=== PATIENT | male | born 1985 | race Caucasian/White ===

== ENCOUNTER 2022-11-23 15:21 | Emergency (ER) | payer MEDICAID, SELFPAY ==
[2022-11-23 15:26] VITALS: BP 136/96; PULSE 94; RESP 16; TEMP 36.7; O2SAT 99; BMI 31.1
[2022-11-23 15:32] VITALS: BP 136/96; PULSE 87; RESP 16; TEMP 36.9; O2SAT 99; BMI 29.3
--- NOTE | 2022-11-23 15:41 | XR_ITS ---
[address] [address] Patient Name: TRISH ALTMAN MRN: [id number] date: 1985 Sex: M Assigned Patient Location: ER Current Patient Location: ER Accession/Order Number: [id number] Exam Date: 11/23/2022 15:45 Report Date: 11/23/2022 16:09 At the request of: REBECCA DUKE Procedure: XR hand RT min 3V EXAM: XR hand RT min 3V HISTORY: Pain COMPARISON: X-rays 07/01/2020. TECHNIQUE: 3 views FINDINGS: No osseous lesion, fracture, dislocation or subluxation. Joint spaces are normal. No visualized effusion. No visualized soft tissue edema. XR/XR hand RT min 3V IMPRESSION: Normal x-rays Electronically authenticated by: RICARDO WILCOX Date: 11/23/2022 16:09
--- NOTE | 2022-11-23 15:43 | ED_ITS ---
HPI - Skin/Abscess/Foreign Bdy General Chief complaint: Skin/Abscess/Foreign Body Stated complaint: WOUND/ LACERATION Time Seen by Provider: 11/23/22 15:32 Source: patient Mode of arrival: walk-in History of Present Illness HPI narrative: 36-year-old male presents for an injury to his right hand. This happened in the early afternoon. He was using a power school and the socket came off and he was hit in the palm of the right hand, ulnar side. His finger still hurts and neither does his wrist. He had a tetanus shot about five years ago. the pain is mild. he is left-handed. Related Data Home Medications Medication Instructions Recorded Confirmed No Known Home Medications 11/23/22 11/23/22 Allergies Allergy/AdvReac Type Severity Reaction Status Date / Time No Known Drug Allergies Allergy Verified 11/23/22 15:26 Review of Systems ROS Narrative A ten point review of systems is negative except as noted above. Exam Narrative Exam Narrative: Nurses note and vital signs reviewed and patient is not hypoxic. General: The patient appears well and in no apparent distress. Patient is resting comfortably on cart. Skin: Warm, dry, no pallor noted. There is no rash noted. Head: Normocephalic, atraumatic Eye: Normal conjunctiva, no drainage Ears, Nose, Mouth, and Throat: oral mucosa is moist. Nares patent. Cardiovascular: Regular Rate and Rhythm Respiratory: Patient is in no distress, no accessory muscle use, lungs are clear to auscultation, no wheezing, rales or rhonchi Back: non-tender, no CVA tenderness bilaterally to percussion. GI: soft and nontender Musculoskeletal: on the right hand on her side palmar surface is a semicircle laceration which is a flap type laceration. It is closed now. Fingers have full range of motion. Neurological: A&O, normal speech Psychiatric: Cooperative Constitutional Vital Signs, click to edit/add: Last Vital Signs Temp 98.4 F 11/23/22 15:32 Pulse 87 11/23/22 15:32 Resp 16 11/23/22 15:32 BP 136/96 H 11/23/22 15:32 Pulse Ox 99 11/23/22 15:32 O2 Del Method Room Air 11/23/22 15:35 Course Vital Signs Vital signs: Vital Signs Temperature 98.1 F 11/23/22 15:26 Pulse Rate 94 H 11/23/22 15:26 Respiratory Rate 16 11/23/22 15:26 Blood Pressure 136/96 H 11/23/22 15:26 Pulse Oximetry 99 11/23/22 15:26 Oxygen Delivery Method Room Air 11/23/22 15:26 Temperature 98.4 F 11/23/22 15:32 Pulse Rate 87 11/23/22 15:32 Respiratory Rate 16 11/23/22 15:32 Blood Pressure 136/96 H 11/23/22 15:32 Pulse Oximetry 99 11/23/22 15:32 Oxygen Delivery Method Room Air 11/23/22 15:35 MDM - Skin/Abscess/Foreign Bdy MDM Narrative Medical decision making narrative: x-ray per radiologist shows no acute findings. Tetanus is up-to-date. Steri- Strips applied. The wound has been cleansed and dressed here. Treatment diagnosis and follow-up were discussed with the patient. sutures are not indicated. Differential Diagnosis Differential diagnosis: Likely other (abrasion, laceration, avulsion) Imaging Data right hand x-ray: Radiologist's impression: no acute findings Discharge Plan Discharge Chief Complaint: Skin/Abscess/Foreign Body Clinical Impression: Laceration of right hand Patient Disposition: Home, Self-Care Time of Disposition Decision: 16:24 Condition: Good Mode of Transportation: Private Vehicle Prescriptions / Home Meds: No Action No Known Home Medications Instructions: Laceration (ED) Additional Instructions: Do not get Steri-Strips wet for seven days. Stand Alone Forms: Portal Instructions Referrals: Physician,Non-Staff, MD [Primary Care Provider] - 1 week
== END 2022-11-23 16:34 | disposition home or self-care (01) ==
PROVIDERS: Emergency Provider Emergency Medicine
DX: S61.411A Laceration without foreign body of right hand, initial encounter (principal); W22.8XXA Striking against or struck by other objects, initial encounter
CPT/HCPCS: 73130; 99283

== ENCOUNTER 2023-03-22 20:08 | Emergency (ER) | payer MEDICAID, SELFPAY ==
[2023-03-22 20:14] VITALS: BP 167/120; PULSE 74; RESP 20; TEMP 37; O2SAT 99; BMI 32.9
--- NOTE | 2023-03-22 20:27 | XR_ITS ---
[address] [address] Patient Name: TRISH ALTMAN MRN: [id number] date: 1985 Sex: M Assigned Patient Location: ER Current Patient Location: ER Accession/Order Number: [id number] Exam Date: 03/22/2023 20:40 Report Date: 03/22/2023 21:01 At the request of: AFIA TREADWELL Procedure: XR humerus LT EXAM: XR humerus LT HISTORY: left arm pain COMPARISON: None. TECHNIQUE: 2 views left humerus FINDINGS: No acute fracture or aggressive osseous abnormality. Mild degenerative change of the acromioclavicular joint. Soft tissues of the left upper extremity are unremarkable. Left lung is clear. XR/XR humerus LT IMPRESSION: No acute osseous abnormality of the left humerus. Electronically authenticated by: FRITZ MANUEL Date: 03/22/2023 21:01
--- NOTE | 2023-03-22 20:27 | XR_ITS ---
The [address] [address] Patient Name: TRISH ALTMAN MRN: [id number] date: 1985 Sex: M Assigned Patient Location: ER Current Patient Location: ER Accession/Order Number: [id number] Exam Date: 03/22/2023 20:40 Report Date: 03/22/2023 21:05 At the request of: AFIA TREADWELL Procedure: XR shoulder LT min 2V EXAM: XR shoulder LT min 2V HISTORY: Left shoulder pain COMPARISON: None. TECHNIQUE: 2 views left shoulder FINDINGS: Mild degenerative change of the acromioclavicular joint. Glenohumeral joint is congruent. No acute fracture or aggressive osseous abnormality. Imaged lungs are clear. XR/XR shoulder LT min 2V IMPRESSION: Mild degenerative change of the acromioclavicular joint without acute osseous abnormality. Electronically authenticated by: FRITZ MANUEL Date: 03/22/2023 21:05
--- NOTE | 2023-03-22 20:27 | ECG_ITS ---
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
--- NOTE | 2023-03-22 20:28 | ED_ITS ---
HPI - General Adult General Chief complaint: Extremity Problem, Nontraumatic Stated complaint: LT ARM PAIN Time Seen by Provider: 03/22/23 20:18 Source: patient Mode of arrival: walk-in Limitations: no limitations History of Present Illness HPI narrative: Patient is a 37-year-old male who presents to the emergency department for intermittent and progressively worsening pain in the left posterior arm. He states several months ago the pain began in the left anterior shoulder and now he feels the pain in the left deltoid with some radiation into the arm. He denies any specific mechanism of injury or trauma. 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 He states earlier today he felt mildly lightheaded and was concerned because he looked up left arm pain on the Internet. He has not had any swelling or redness of the shoulder, no chest pain or shortness of breath. He has a history of high blood pressure but has not been taking any medication for high blood pressure. He states if he lays on the left arm the pain improves. Massage also improves pain to the left posterior arm. Related Data Previous Rx's Medication Instructions Recorded ketorolac 10 mg tablet 10 mg PO TID PRN pain #10 tabs 03/22/23 methocarbamol 750 mg tablet 750 mg PO TID PRN pain #20 tabs 03/22/23 methylprednisolone 4 mg tablets in See Rx Instructions .Route 03/22/23 a dose pack (Medrol (Socrates)) .COMPLEX #21 ea Allergies Allergy/AdvReac Type Severity Reaction Status Date / Time No Known Drug Allergies Allergy Verified 03/22/23 20:18 Review of Systems ROS Constitutional Denies: fever or chills Ears, nose, mouth, and throat Denies: throat pain Cardiovascular Denies: chest pain Respiratory Denies: shortness of breath or cough Gastrointestinal Denies: nausea or vomiting Musculoskeletal Reports: extremity pain; Denies: back pain Integumentary/Breast Denies: rash Neurological Denies: headache PFSH PFSH Social History Smoking status: Current every day smoker Exam Narrative Exam Narrative: Gen.: Awake, alert, in no distress Head: Normocephalic, atraumatic ENT: Moist mucous membranes Respiratory: No respiratory distress, lungs clear bilaterally Cardio: Regular rate and rhythm Extremities: Moves extremities equally, patient splinting the left upper arm, no bony point tenderness of the left shoulder or left humerus. 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 Psych: Normal mood and affect Neuro: No focal neuro deficit Skin: Warm, dry, intact Constitutional Vital Signs, click to edit/add: Last Vital Signs Temp 98.6 F 03/22/23 20:14 Pulse 80 03/22/23 21:36 Resp 18 03/22/23 21:36 BP 167/120 H 03/22/23 20:14 Pulse Ox 97 03/22/23 21:36 O2 Del Method Room Air 03/22/23 21:36 Course Vital Signs Vital signs: Vital Signs Temperature 98.6 F 03/22/23 20:14 Pulse Rate 74 03/22/23 20:14 Respiratory Rate 20 03/22/23 20:14 Blood Pressure 167/120 H 03/22/23 20:14 Pulse Oximetry 99 03/22/23 20:14 Oxygen Delivery Method Room Air 03/22/23 20:14 Temperature 98.6 F 03/22/23 20:14 Pulse Rate 80 03/22/23 21:36 Respiratory Rate 18 03/22/23 21:36 Blood Pressure 167/120 H 03/22/23 20:14 Pulse Oximetry 97 03/22/23 21:36 Oxygen Delivery Method Room Air 03/22/23 21:36 Medical Decision Making MDM Narrative Medical decision making narrative: X-rays of the left shoulder and left humerus show degenerative changes at the left acromioclavicular joint which is consistent with the patient's presentation of left shoulder pain progressing into the left arm. Patient will be given anti-inflammatories, steroid pack and muscle relaxants. He is referred to orthopedics. An EKG was performed because the patient was concerned about his left arm pain ongoing for several months and what he read on the Internet. The EKG does not show any acute process, he has no chest pain or shortness of breath. He was is strongly encouraged to see a primary care provider about rechecking his blood pressure. Return to the ER if symptoms change or worsen. Medical Records Medical records reviewed: Yes I reviewed the patient's medical records ECG Data Attestation: I personally reviewed and interpreted this ECG as follows: (Normal sinus rhythm at a rate of 89, no acute ST elevation or ectopy. EKG reviewed by attending physician) Discharge Plan Discharge Chief Complaint: Extremity Problem, Nontraumatic Clinical Impression: Left arm pain Patient Disposition: Home, Self-Care Time of Disposition Decision: 21:10 Condition: Good Prescriptions / Home Meds: New ketorolac 10 mg tablet 10 mg PO TID PRN (Reason: pain) Qty: 10 0RF methocarbamol 750 mg tablet 750 mg PO TID PRN (Reason: pain) Qty: 20 0RF methylprednisolone [Medrol (Socrates)] 4 mg tablets,dose pack See Rx Instructions .ROUTE .COMPLEX Qty: 21 0RF Rx Instructions: Taper as directed Instructions: Arm Pain (ED) Stand Alone Forms: Portal Instructions Referrals: Crescencio Askew MD [Physician] - 1 week Discharge Date/Time: 03/22/23 21:35
--- NOTE | 2023-03-22 20:39 | PC.NURSE ---
Pt reports left arm pain that radiates down arm from shoulder to elbow, x3 months. Report nerve injury years ago, since had resolved. Pulses intact. Limited ROM.
[2023-03-22] MEDS: KETOROLAC TROMETHAMINE 60 MG/2 ML VIAL IM (20:54)
[2023-03-22 21:36] VITALS: PULSE 80; RESP 18; O2SAT 97
== END 2023-03-22 21:35 | disposition home or self-care (01) ==
PROVIDERS: Emergency Provider Emergency Medicine
DX: M79.602 Pain in left arm (principal); F17.210 Nicotine dependence, cigarettes, uncomplicated
CPT/HCPCS: 73030; 73060; 93005; 96372; 99284

== ENCOUNTER 2023-12-28 15:56 | Emergency (ER) | payer OTHER, SELFPAY ==
[2023-12-28] VITALS (12 sets, daily range): BP systolic 137–175; BP diastolic 90–124; PULSE 108–128; TEMP 37.3–38.1; O2SAT 95–96; BMI 23.5
--- NOTE | 2023-12-28 16:05 | XR_ITS ---
The [address] [address] Patient Name: TRISH ALTMAN MRN: [id number] date: 1985 Sex: M Assigned Patient Location: ED.MAIN Current Patient Location: ER Accession/Order Number: [id number] Exam Date: 12/28/2023 16:22 Report Date: 12/28/2023 16:50 At the request of: BRIAN HINOJOSA Procedure: XR cervical spine 2-3V IMAGES REVIEWED: XR cervical spine 2-3V, XR chest 2V, XR shoulder LT min 2V COMPARISON: 03/22/2023. CLINICAL INDICATION: pain FINDINGS/IMPRESSION: 1. No evidence of acute osseous abnormality of the cervical spine or left shoulder. 2. No radiographic evidence of acute cardiopulmonary abnormality. 3. There appears to be slight levocurvature of the cervical spine and minimal multilevel degenerative change of the cervical spine. 4. Minimal degenerative change left AC joint. Electronically authenticated by: NINO BRADLEY Date: 12/28/2023 16:50
--- NOTE | 2023-12-28 16:05 | XR_ITS ---
The [address] [address] Patient Name: TRISH ALTMAN MRN: [id number] date: 1985 Sex: M Assigned Patient Location: ER Current Patient Location: ER Accession/Order Number: [id number] Exam Date: 12/28/2023 16:22 Report Date: 12/28/2023 16:50 At the request of: BRIAN HINOJOSA Procedure: XR chest 2V IMAGES REVIEWED: XR cervical spine 2-3V, XR chest 2V, XR shoulder LT min 2V COMPARISON: 03/22/2023. CLINICAL INDICATION: pain FINDINGS/IMPRESSION: 1. No evidence of acute osseous abnormality of the cervical spine or left shoulder. 2. No radiographic evidence of acute cardiopulmonary abnormality. 3. There appears to be slight levocurvature of the cervical spine and minimal multilevel degenerative change of the cervical spine. 4. Minimal degenerative change left AC joint. Electronically authenticated by: NINO BRADLEY Date: 12/28/2023 16:50
--- NOTE | 2023-12-28 16:05 | XR_ITS ---
The [address] [address] Patient Name: TRISH ALTMAN MRN: [id number] date: 1985 Sex: M Assigned Patient Location: ER Current Patient Location: ER Accession/Order Number: [id number] Exam Date: 12/28/2023 16:22 Report Date: 12/28/2023 16:50 At the request of: BRIAN HINOJOSA Procedure: XR shoulder LT min 2V IMAGES REVIEWED: XR cervical spine 2-3V, XR chest 2V, XR shoulder LT min 2V COMPARISON: 03/22/2023. CLINICAL INDICATION: pain FINDINGS/IMPRESSION: 1. No evidence of acute osseous abnormality of the cervical spine or left shoulder. 2. No radiographic evidence of acute cardiopulmonary abnormality. 3. There appears to be slight levocurvature of the cervical spine and minimal multilevel degenerative change of the cervical spine. 4. Minimal degenerative change left AC joint. Electronically authenticated by: NINO BRADLEY Date: 12/28/2023 16:50
--- NOTE | 2023-12-28 16:10 | ED_ITS ---
<Statement entered by Hilary Rodriguez MD - 12/28/23 17:37> This documentation has been reviewed and approved. HPI HPI - General Adult General Chief complaint: Extremity Injury, Upper Stated complaint: Left Shoulder Pain Time Seen by Provider: 12/28/23 15:59 Source: patient Mode of arrival: walk-in Limitations: no limitations History of Present Illness HPI narrative: Patient is a 38-year-old male presents to the ER with concerns of left shoulder pain. He denies injury, states he is not currently working. Notes pain has been present for 1 to 2 weeks, gradually building and getting worse. Patient localizes symptoms to the left paravertebral cervical spine into the medial scapular border and left posterior shoulder. He denies any anterior shoulder pain. Patient notes he can get relief if he holds his arm above his head in a certain position. He denies any chest pain or shortness of breath. He denies abdominal pain. Patient states he has been working outside and presents borderline febrile with elevated heart rate. He admits to marijuana use but denies any illicit drug use or injected drug use. Patient drinks alcohol occasionally and has poor dentition. Denies any current signs or symptoms of infection. Patient without headache or loss of vision. He appears uncomfortable with movement of his neck and only certain positions and left shoulder. Location: Reports neck and upper extremity (left shoulder) Radiation: Reports neck Severity: moderate Quality: Reports aching and constant Pain Consistency: Reports constant Relieving factors: Reports movement (certain position/ ) Exacerbating factors: Reports none Related Data Previous Rx's ?Medication ?Instructions ?Recorded prednisone 20 mg tablet 40 mg (2 x 20 mg) PO DAILY 5 days 12/28/23 #10 tabs tizanidine 4 mg capsule (Zanaflex) 4 mg PO TID PRN muscle spasticity 12/28/23 #10 caps Allergies Allergy/AdvReac Type Severity Reaction Status Date / Time No Known Drug Allergies Allergy Verified 12/28/23 16:04 Opioid HPI Opioid Management Most Recent Opioid Data: Last Pain Scale 10 12/28/23 16:34 Last MAR Pain Assessment 12/28/23 16:34 Review of Systems ROS Constitutional Reports: fever; Denies: chills Eyes Denies: increased production of tears Ears, nose, mouth, and throat Denies: throat pain, throat swelling, difficulty swallowing or dry mouth Cardiovascular Denies: chest pain, palpitations or edema Respiratory Denies: shortness of breath or cough Gastrointestinal Denies: abdominal pain, nausea or vomiting Genitourinary Denies: painful urination Musculoskeletal Reports: neck pain, extremity pain (left shoulder) and joint pain (left posterior shoulder, no swelling. ); Denies: back pain or extremity swelling Integumentary/Breast Denies: rash or itching Neurological Denies: headache, numbness in extremities, weakness in extremities or behavioral changes Psychiatric Denies: anxiety Hematologic/Lymphatic Denies: easy bruising Allergic/Immunologic Denies: hives PFSH [facility] Social History Smoking status: Current every day smoker Little interest or pleasure in doing things: not at all Feeling down, depressed, or hopeless: not at all Exam Narrative Exam Narrative: Nurses notes and vital signs reviewed and patient is not hypoxic. General: The patient appears well, uncomfortable with movement. Patient is resting comfortably on cart. Skin: Warm, dry, no pallor noted. Head: Normocephalic, atraumatic Neck: Supple, trachea mid-line, tenderness noted left paravertebral cervical and left medial scapular border, palpable spasm. No meningeal signs. Pain present when looking to the left with resistance, no pain with looking right, up or down. Eye: Pupils are equal, round and reactive to light, EOMI Ears, Nose, Mouth, and Throat: TM are clear, normal light reflex, oral mucosa is moist, no posterior oropharynx erythema or hypertrophy, uvula is mid-line, poor dentition noted. Cardiovascular: tachycardia. Respiratory: Patient is in no distress, no accessory muscle use, lungs are clear to auscultation, no wheezing, rales or rhonchi. Chest Wall: no tenderness Back: non-tender, no CVA tenderness Musculoskeletal: No swelling or erythema to the left shoulder joint, tolerates passive range of motion well without complaints of pain, negative Sheridan test. Patient has pain with movement of the left trapezium with notable palpable spasm. Pain completely relieved with certain position of the shoulder but tolerates motion well otherwise, reproducible spasm left paravertebral cervical. Right upper extremity unremarkable, no focal deficits. GI: Normal bowel sounds, no tenderness to palpation, no masses appreciated. No rebound, guarding, or rigidity noted. Neurological: A&O x4. Reflexes 2+ symmetric biceps, triceps and brachial radialis, negative clonus. no menigeal signs Psychiatric: Cooperative Constitutional Vital Signs, click to edit/add: Last Vital Signs Temp 100.6 F H 12/28/23 16:01 Pulse 110 H 12/28/23 17:00 Resp 15 12/28/23 16:50 BP 137/90 12/28/23 17:00 Pulse Ox 95 12/28/23 16:27 O2 Del Method Room Air 12/28/23 16:27 Course Vital Signs Vital signs: Vital Signs Temperature 100.6 F H 12/28/23 16:01 Pulse Rate 128 H 12/28/23 16:01 Respiratory Rate 18 12/28/23 16:01 Blood Pressure 174/124 H 12/28/23 16:01 Pulse Oximetry 96 12/28/23 16:01 Oxygen Delivery Method Room Air 12/28/23 16:01 Temperature 100.6 F H 12/28/23 16:01 Pulse Rate 110 H 12/28/23 17:00 Respiratory Rate 15 12/28/23 16:50 Blood Pressure 137/90 12/28/23 17:00 Pulse Oximetry 95 12/28/23 16:27 Oxygen Delivery Method Room Air 12/28/23 16:27 Medical Decision Making MDM Narrative Medical decision making narrative: Patient presents with benign left posterior shoulder pain notes repetitive overhead lifting and pushing. However on exam has notable spasm to the left paracervical muscles into the left medial scapular space, dropped off by his family. Patient notes pain with motion and positioning. He is however tachycardic, low-grade fever. Blood cultures will be obtained and supportive labs. Patient admits to a longstanding history of hypertension. ] Patient reevaluated, reports feeling significantly better. Denies headache, notes neck pain is much more tolerable. Patient able to stand and ambulate about the room reporting that he feels significantly better. We discussed his laboratory studies. Sed rate and CRP are elevated white blood cell count and lactic within normal limits, sepsis appears less likely as the patient clinically appears nontoxic. Blood cultures will still be pending. He lives with his family who are now present at the bedside and they advised if they noticed any change in symptoms or behavior they will bring him immediately back to the ER for reevaluation as we discussed the risks and benefits of observation versus discharge home. Patient had elevated blood pressure and heart rate on arrival. Admits that he drank 2 monsters approximately 1 hour prior to arrival and he is encouraged to cut back his caffeine consumption. His blood pressure did improve nicely with control of his pain. He is without any chest pain or shortness of breath. We discussed the importance of prompt follow-up to the family doctor for ongoing management of chronic medical conditions. I feel the patient has cervical neck pain and some C5 cervical radiculopathy. Palpable muscle spasms. He may require physical therapy referral if symptoms persist. We discussed medication and he is agreeable to muscle relaxant at bedtime and prednisone taper in addition to Tylenol. Patient will return to the ER if symptoms worsen or new symptoms develop.Pt declines idea of admission ambulatory at bedside. The patient is to followup with primary care physician in next 2-3 days or to return to the emergency department should any of the signs or symptoms worsen or new symptoms develop. Patient had questions answered. The patient agrees with the following Diagnosis and Treatment plan and the patient will be discharged home. Lab Data Lab results reviewed: Yes I reviewed the patient's lab results Labs: Lab Results 12/28/23 12/28/23 Range/Units 16:08 16:15 WBC 9.6 (4.0-11.0) 10^3/uL RBC 5.01 (4.70-6.10) 10^6/uL Hgb 15.3 (14.0-18.0) g/dL Hct 44.4 (42.0-54.0) % MCV 88.6 (80.0-94.0) fL MCH 30.5 (25.9-34.0) pg MCHC 34.5 (29.9-35.2) g/dL RDW 13.1 (11.0-15.0) % Plt Count 276 (150-450) 10^3/uL MPV 10.8 (9.5-13.5) fL Neut % (Auto) 78.3 H (43.0-75.0) % Lymph % (Auto) 7.9 L (20.5-60.0) % [place] % (Auto) 10.2 (1.7-12.0) % Eos % (Auto) 2.8 (0.9-7.0) % Baso % (Auto) 0.6 (0.2-2.0) % Neut # (Auto) 7.5 H (1.4-6.5) 10^3/uL Lymph # (Auto) 0.8 L (1.2-3.8) 10^3/uL [place] # (Auto) 1.0 H (0.3-0.8) 10^3/uL Eos # (Auto) 0.3 (0.0-0.7) 10^3/uL Baso # (Auto) 0.1 (0.0-0.1) 10^3/uL Abs Immat Gran (auto) 0.02 (0.00-0.03) 10^3/uL Imm/Tot Granulo (auto) 0.2 (0.0-0.5) % ESR 44 H (<=15) mm/hr Sodium 135 L (136-145) mmol/L Potassium 3.8 (3.5-5.1) mmol/L Chloride 99 (98-107) mmol/L Carbon Dioxide 26.2 (21.0-32.0) mmol/L Anion Gap 13.6 BUN 13.0 (7.0-18.0) mg/dL Creatinine 1.23 (0.70-1.30) mg/dL Est GFR ( Amer) >60 (>=60) Est GFR (Non-Af Amer) >60 (>=60) BUN/Creatinine Ratio 10.6 Glucose 115 H (74-106) mg/dL Lactate 1.8 (0.4-2.0) mmol/L Calcium 9.1 (8.5-10.1) mg/dL Total Bilirubin 0.3 (0.2-1.0) mg/dL AST 39 H (15-37) U/L ALT 32 (16-63) U/L Alkaline Phosphatase 129 H (46-116) U/L Troponin I High Sens <4.0 L (4.0-76.1) pg/mL C-Reactive Protein 1.40 H (<=0.50) mg/dL Total Protein 8.2 (6.4-8.2) g/dL Albumin 4.2 (3.4-5.0) g/dL Globulin 4.0 g/dL Albumin/Globulin Ratio 1.0 Urine Color Yellow (YELLOW) Urine Clarity Clear (CLEAR) Urine pH 7.0 (5.0-9.0) Ur Specific [place] 1.020 (1.005-1.025) Urine Protein Negative (NEG/TRACE) mg/dL Urine Glucose (UA) Negative (NEGATIVE) mg/dL Urine Ketones Negative (NEGATIVE) mg/dL Urine Occult Blood Negative (NEGATIVE) Urine Nitrite Negative (NEGATIVE) Urine Bilirubin Negative (NEGATIVE) Urine Urobilinogen 0.2 (0.2-1.0) EU/dL Ur Leukocyte Esterase Negative (NEGATIVE) ECG Data Attestation: I personally reviewed and interpreted this ECG as follows: Interpretation: EKG interpretation: Emergency Department physician interpretation, sinus tachycardia 123 bpm. No ectopy, no ST segment elevation, normal axis. Discharge Plan Discharge Chief Complaint: Extremity Injury, Upper Clinical Impression: Cervical paraspinous muscle spasm, Acute pain of left shoulder, Cervical radiculopathy at C5 Patient Disposition: Home, Self-Care Time of Disposition Decision: 17:23 Condition: Good Prescriptions / Home Meds: New tizanidine [Zanaflex] 4 mg capsule 4 mg PO TID PRN (Reason: muscle spasticity) Qty: 10 0RF prednisone 20 mg tablet 40 mg PO DAILY 5 Days Qty: 10 0RF Print Language: Bahamian Instructions: Muscle Spasm (ED), Neck Pain (ED) Referrals: Britni Flowers NP [Physician] - As soon as possible Crescencio Askew MD [Physician] - As needed
--- NOTE | 2023-12-28 16:10 | ECG_ITS ---
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
--- OUTSIDE RECORDS SUMMARY | 2023-12-28 16:26 | XMS_ITS | CCD ---
Author Organization [facility] Informat ion Partnership [facility] Care Team Providers Care Physicist Astrophysics Name Role Phone REQUEST, DR NONE LISTED Primary Care Unavaila ble ROGE GALLAGHER Attending Unavailable ROGE GALLAGHER Admitting Unavailable Problems Problem Classification Problem Date Documented Da te Episodic/Chronic Residual codes; unclassified (4 sources) Procedure and treatment not carried out due to patient leaving prior to being seen by health care provider; Translations: [PROC AND TX NOT CARRIED OUT PT LEAVE] Onset: 08-27-2021 Episodic Encounters Encounter Date Encounter Type Care Provider Facility Start: 08-27-2021 End: 08-28-[address] NONE LISTED REQUEST Facility: Payers Date Payer Category Payer Unknown [id number] 1959 Self-pay [id number] Summary Purpose Family History No Family History Records Found Advance Directives No Advanced Directives Records Found Additional Source Comments (unrecognized sect ion and content) No Status Records Found INFORMATION SOURCE (unrecogn ized section and content) DATE CREATED AUTHOR 08/31/2021 [facility] FOR RECORDS PERTAINING TO PATIENTS WHO ARE OR HAVE BEEN ENROLLED IN A CHEMICAL DEPENDENCY/SUBSTANCEABUSE PROGRAM, SOME INFORMATION MAY BE OMITTED. This clinical summary was aggregated from multiple sources. Caution should be exercised in using it in the provision of clinical care. This summary normalizes information from multiple sources, and as a consequence, information in this document may materially change the coding, format and clinical context of patient data. In addition, data may be omitted in some cases. CLINICAL DECISIONS SHOULD BE BASED ON THE PRIMARY CLINICAL RECORDS. [facility] [employer] provides no warranty or guarantee of the accuracy or completeness of information in this document.
[2023-12-28] MEDS: KETOROLAC TROMETHAMINE 30 MG/ML VIAL IVP (16:34)
[2023-12-28] MEDS: ACETAMINOPHEN 500 MG TABLET 1000 MG PO (16:34)
[2023-12-28] MEDS: 0.9 % SODIUM CHLORIDE 1,000 ML 999 ML IV (16:34)
[2023-12-28 16:35] LABS: Basophils Absolute Auto 0.1 10^3/uL (0.0-0.1); Basophils Percent Auto 0.6 % (0.2-2.0); Eosinophils Absolute Auto 0.3 10^3/uL (0.0-0.7); Eosinophils Percent Auto 2.8 % (0.9-7.0); Hematocrit 44.4 % (42.0-54.0); Hemoglobin 15.3 g/dL (14.0-18.0); Immature Granulocytes Abs Auto 0.02 10^3/uL (0.00-0.03); Immature Granulocytes Pct Auto 0.2 % (0.0-0.5); Lymphocytes Absolute Auto 0.8 10^3/uL (1.2-3.8); Lymphocytes Percent Auto 7.9 % (20.5-60.0); Mean Corpuscular HGB Conc 34.5 g/dL (29.9-35.2); Mean Corpuscular Hemoglobin 30.5 pg (25.9-34.0); Mean Corpuscular Volume 88.6 fL (80.0-94.0); Mean Platelet Volume 10.8 fL (9.5-13.5); Monocytes Percent Auto 10.2 % (1.7-12.0); Neutrophils Absolute Auto 7.5 10^3/uL (1.4-6.5); Neutrophils Percent Auto 78.3 % (43.0-75.0); Platelet Count 276 10^3/uL (150-450); Red Blood Count 5.01 10^6/uL (4.70-6.10); Red Cell Distribution Width 13.1 % (11.0-15.0); White Blood Count 9.6 10^3/uL (4.0-11.0)
[2023-12-28] MEDS: DIAZEPAM 5 MG TABLET PO (16:35)
[2023-12-28 16:37] LABS: Bilirubin Urine NEGATIVE (NEGATIVE); Blood Urine NEGATIVE (NEGATIVE); Clarity Urine CLEAR (CLEAR); Color Urine YELLOW (YELLOW); Glucose Urine UA NEGATIVE (NEGATIVE); Ketones Urine NEGATIVE (NEGATIVE); Leukocyte Esterase Urine NEGATIVE (NEGATIVE); Nitrite Urine NEGATIVE (NEGATIVE); Protein Urine NEGATIVE (NEG/TRACE); Urobilinogen Urine 0.2 EU/dL (0.2-1.0)
[2023-12-28 16:42] LABS: Urine Microscopic Indicated NO
[2023-12-28 17:00] LABS: Lactate/Lactic Acid 1.8 mmol/L (0.4-2.0)
[2023-12-28 17:04] LABS: Erythrocyte Sedimentation Rate 44 mm/hr (<=15)
[2023-12-28 17:06] LABS: Alanine Aminotransferase 32 U/L (16-63); Albumin Level 4.2 g/dL (3.4-5.0); Alkaline Phosphatase 129 U/L (46-116); Anion Gap 13.6; Aspartate Amino Transferase 39 U/L (15-37); BUN Creatinine Ratio 10.6; Bilirubin Total 0.3 mg/dL (0.2-1.0); Calcium 9.1 mg/dL (8.5-10.1); Carbon Dioxide 26.2 mmol/L (21.0-32.0); Chloride 99 mmol/L (98-107); Estimated GFR (African America >60 (>=60); Estimated GFR (Non-African Ame >60 (>=60); Glucose 115 mg/dL (74-106); Potassium 3.8 mmol/L (3.5-5.1); Sodium 135 mmol/L (136-145); Total Protein 8.2 g/dL (6.4-8.2); Troponin I High Sensitivity <4.0 pg/mL (4.0-76.1)
[2023-12-28] MEDS: PREDNISONE 20 MG TABLET 40 MG PO (17:34)
== END 2023-12-28 17:43 | disposition home or self-care (01) ==
PROVIDERS: Personal Emergency Response Attendant; Emergency Provider Emergency Medicine
DX: M25.512 Pain in left shoulder (principal); M54.12 Radiculopathy, cervical region; M62.838 Other muscle spasm; F12.90 Cannabis use, unspecified, uncomplicated; F17.200 Nicotine dependence, unspecified, uncomplicated
CPT/HCPCS: 36415; 71046; 72040; 73030; 80053; 81003; 83605; 84484; 85025; 85652; 86140; 87040; 93005; 96374; 99285; J1885; J7512

== ENCOUNTER 2024-01-20 09:31 | Emergency (ER) | payer OTHER, SELFPAY ==
[2024-01-20 09:34] VITALS: BP 162/102; PULSE 98; TEMP 37.1; O2SAT 97; BMI 34.5
--- OUTSIDE RECORDS SUMMARY | 2024-01-20 09:37 | XMS_ITS | CCD ---
Author Organization [facility] Informat ion Partnership [facility] Care Team Providers Care Materials Planner/Production Planner Name Role Phone REQUEST, DR NONE LISTED [...] Facility: Payers Date Payer Category Payer Unknown [id number] 1959 Self-pay [id number] Summary Purpose Family History No Family History Records Found Advance Directives No Advanced Directives Records Found Additional Source Comments (unrecognized sect ion and content) No Status Records Found INFORMATION SOURCE (unrecogn ized section and content) DATE CREATED AUTHOR 08/31/2021 The [facility] FOR RECORDS PERTAINING TO PATIENTS WHO ARE [...] BE BASED ON THE PRIMARY CLINICAL RECORDS. [employer] provides no warranty or guarantee of the accuracy or completeness of information in this document.
--- NOTE | 2024-01-20 09:59 | ED_ITS ---
HPI HPI - General Adult General Chief complaint: Neck Pain/Injury Stated complaint: NECK/SHOULDER/ARM PAIN Time Seen by Provider: 01/20/24 09:35 Source: patient Mode of arrival: walk-in History of Present Illness HPI narrative: Presented to the emergency department for evaluation of left neck pain. Left arm pain. Patient states that he came to this emergency department a couple weeks ago for the same thing. He had images done, he thought it was his shoulder, they told him there is something wrong with his C5. He went another emergency department 2 to 3 days ago because the medication he had been given he lping. Patient has a picture of all medications he was given, is on an anti- inflammatory, steroid, and pain medication. He states that he followed up outpatient, he went to an orthopedic doctor in the office for an hour, waited had been seen by anyone except the nurse, was told he needed physical therapy, and he decided to leave. Patient states he is not follow-up with physical therapy, he took the medications he was given all day yesterday, but he just wants this fixed today so he came to the emergency department. Patient states he is not having any numbness, weakness, does state that he feels tingling in the first 3 fingers of his left hand, still having pain in the left side of the neck, worsens when he bends, twists or moves the head in any way. Has not dropped anything. Has had no trauma. Has had no new symptoms over the last 3 to 4 weeks, he just wanted this finally taken care of today so he came in. Related Data Home Medications ?Medication ?Instructions ?Recorded ?Confirmed aluminum-mag hydroxide-simethicone 10 ml PO Q6H PRN indigestion 01/20/24 01/20/24 200 mg-200 mg-20 mg/5 mL oral susp (Antacid-Antigas) ketorolac 10 mg tablet 10 mg PO Q6H PRN pain 01/20/24 01/20/24 lidocaine 5 % topical patch 1 patch topical Q24H 01/20/24 01/20/24 meloxicam 15 mg tablet 15 mg PO DAILY 01/20/24 01/20/24 methocarbamol 750 mg tablet 1,500 mg PO Q6H PRN muscle spasm 01/20/24 01/20/24 methylprednisolone 4 mg tablets in 4 mg PO Q12H 01/20/24 01/20/24 a dose pack oxycodone 5 mg tablet 5 mg PO Q6H PRN pain 01/20/24 01/20/24 tizanidine 4 mg tablet 4 mg PO Q8H PRN muscle spasticity 01/20/24 01/20/24 Allergies Allergy/AdvReac Type Severity Reaction Status Date / Time No Known Drug Allergies Allergy Verified 12/28/23 16:04 Opioid HPI Opioid Management Most Recent Opioid Data: Last Pain Scale 10 12/28/23 16:34 Review of Systems ROS Narrative Negative unless otherwise stated in the HPI PFSH [facility] Social History Smoking status: Current every day smoker Little interest or pleasure in doing things: not at all Feeling down, depressed, or hopeless: not at all Exam Narrative Exam Narrative: General: NAD, AAOx3, no distress Eyes: PERRL, EOMI, lids/conjunctiva normal. HEENT: NCAT, mmm Neck: Supple, no LAD, negative Kernig/Brudzinski, non meningeal, no bruit, paraspinal left-sided neck pain, tenderness, radiculopathy into the left trapezius with hypertonicity, spasm, pain following the posterior deltoid on the left Respiratory: respiratory effort normal, speaks in full sentences, no tripod position, no accessory muscle use. Lungs clear to auscultation without rhonchi, wheezes, rales Cardiac: Regular rate and rhythm, no edema, regular s1/s2, no m/g/r Skin: Warm, pink and dry. No rashes, dermatoses, petechiae or lesions to the left upper extremity, 2+ distal pulses Neuro: Speech is clear and appropriate. Normal level of consciousness. Gait and coordination are normal. 5/5 strength in all extremities. Normal strength and sensation, no deficits from his radiculopathy Constitutional Vital Signs, click to edit/add: Last Vital Signs Temp 98.8 F 01/20/24 09:34 Pulse 98 H 01/20/24 09:34 Resp 18 01/20/24 09:34 BP 162/102 H 01/20/24 09:34 Pulse Ox 97 01/20/24 09:34 O2 Del Method Room Air 01/20/24 09:34 Course Vital Signs Vital signs: Vital Signs Temperature 98.8 F 01/20/24 09:34 Pulse Rate 98 H 01/20/24 09:34 Respiratory Rate 18 01/20/24 09:34 Blood Pressure 162/102 H 01/20/24 09:34 Pulse Oximetry 97 01/20/24 09:34 Oxygen Delivery Method Room Air 01/20/24 09:34 Temperature 98.8 F 01/20/24 09:34 Pulse Rate 98 H 01/20/24 09:34 Respiratory Rate 18 01/20/24 09:34 Blood Pressure 162/102 H 01/20/24 09:34 Pulse Oximetry 97 01/20/24 09:34 Oxygen Delivery Method Room Air 01/20/24 09:34 Medical Decision Making MDM Narrative Medical decision making narrative: MDM Patient with history as above presented with left-sided neck pain. History obtained from patient. Patient was nontoxic, stable. Ambulatory. Exam as above. Reviewed external records. Patient has been to multiple emergency departments, has seen specialty care, has not follow-up with physical therapy. He is currently on steroids, opiates, anti-inflammatories Differential diagnosis considered. Overall presentation is consistent with cervical radiculopathy without neurologic deficits. Has full strength of the left upper extremity, hand, arm, forearm, elbow, normal 5 out of 5 strength Patient without neurologic deficits Chart was reviewed. I did discuss the patient that there is no emergent intervention at this time. Can offer. He is to follow-up outpatient with his Ortho, PT, potentially obtain neurosurgery. They wanted a referral to a different spine clinic. Discussed with patient and family bedside to follow-up outpatient with the resources they would prefer. Medical Records Medical records reviewed: Yes I reviewed the patient's medical records Discharge Plan Discharge Chief Complaint: Neck Pain/Injury Clinical Impression: Cervical radiculopathy Patient Disposition: Home, Self-Care Time of Disposition Decision: 10:04 Condition: Good Prescriptions / Home Meds: No Action tizanidine 4 mg tablet 4 mg PO Q8H PRN (Reason: muscle spasticity) meloxicam 15 mg tablet 15 mg PO DAILY ketorolac 10 mg tablet 10 mg PO Q6H PRN (Reason: pain) methocarbamol 750 mg tablet 1,500 mg PO Q6H PRN (Reason: muscle spasm) lidocaine 5 % adhesive patch,medicated 1 patch topical Q24H alum-mag hydroxide-simeth [Antacid-Antigas] 200-200-20 mg/5 mL suspension 10 ml PO Q6H PRN (Reason: indigestion) methylprednisolone 4 mg tablets,dose pack 4 mg PO Q12H oxycodone 5 mg tablet 5 mg PO Q6H PRN (Reason: pain) Print Language: Lao Instructions: Cervical Radiculopathy (ED) Additional Instructions: Follow-up with your PCP in the next 1 to 2 days. Return to the emergency department should symptoms worsen or become worrisome in any way. Follow-up outpatient regimen as discussed. Referrals: Physician,Non-Staff, MD [Primary Care Provider] - 1 week
[2024-01-20] MEDS: KETOROLAC TROMETHAMINE 30 MG/ML VIAL 15 MG IM (10:10)
[2024-01-20] MEDS: DIAZEPAM 10 MG/2 ML SYRINGE 5 MG IM (10:10)
== END 2024-01-20 10:18 | disposition home or self-care (01) ==
PROVIDERS: Emergency Provider Emergency Medicine
DX: M54.12 Radiculopathy, cervical region (principal); F17.200 Nicotine dependence, unspecified, uncomplicated
CPT/HCPCS: 96372; 99284; J1885; J3360

== ENCOUNTER 2024-10-21 14:15 | Emergency (ER) | payer OTHER, SELFPAY ==
--- OUTSIDE RECORDS SUMMARY | 2024-02-25 15:59 | XMS_ITS ---
Author Name Auto Generated Organization [facility] Care Team Providers Care Engineering Model Maker Name Role Phone NO PCP, NO PCP Primary Care Unavailable MARICARMEN GRUBBS Attending Unavailable CRESCENCIO AVELAR Attending Unavailable CRESCENCIO AVELAR Referring Unavailable Crescencio Avelar Attending Unavailable Crescencio Avelar Admitting Unavailable NO FAMILY, PHYSICIAN Primary Care Unavailable PROBLEMS DATE TYPE CONDITION / CODE ATTENDING STATUS [facility] 02/25/2024 Unknown Radiculopathy, cervical region / M54.12(ICD-10) CRESCENCIO AVELAR [facility] 01/18/2024 Unknown Muscle spasm of back / M62.830(ICD-10) MARICARMEN GRUBBS [facility] 01/18/2024 Unknown Neck Pain / FREETEXT(AOF) MARICARMEN GRUBBS [facility] 01/18/2024 Unknown Shoulder Pain / FREETEXT(AOF) MARICARMEN GRUBBS [facility] 01/18/2024 Unknown neck and shoulde r pain / UNK(Unknown) MARICARMEN GRUBBS [facility] PROCEDURES No Procedure Records Found RESULTS MRI CERVICAL SPINE WO CONTRAST Observed: 02/26/2024 10:46 PM Status: F Source: [facility] EXAMINATION: MRI OF THE CERVICAL SPINE WITHOUT CONTRAST 02/25/2024 3:11 pm TECHNIQUE: Multiplanar multisequence MRI of the cervical spine was performed without the administration of intravenous contrast. COMPARISON: None. HISTORY: ORDERING SYSTEM PROVIDED HISTORY: Cervical radiculopathy Initial evaluation FINDINGS: BONES/ALIGNMENT: There is normal alignment of the spine. The vertebral body heights are maintained. The bone marrow signal appears unremarkable. There is mild disc space narrowing and small osteophytes at C3-4, C4-5, C5-6, and C6-7. There is an annular fissure at C4-5. Motion artifact degrades some of the images. SPINAL CORD: No abnormal cord signal is seen. SOFT TISSUES: No paraspinal mass identified. C2-C3: The thecal sac and neural foramina are intact. C3-C4: There are small osteophytes. Disc and/or osteophytes cause minimal narrowing of the neural foramina bilaterally. The thecal sac is not stenotic. C4-C5: There is a disc protrusion with annular fissure measuring 2-3 mm. Disc and/or osteophytes cause minimal narrowing of the neural foramina bilaterally. The thecal sac is not stenotic. C5-C6: There is a minimum disc protrusion measuring 2 mm. Disc and/or osteophytes cause minimal narrowing of the neural foramina bilaterally. The thecal sac is not stenotic. C6-C7: Disc and/or osteophytes cause minimal narrowing of the neural foramina bilaterally. The thecal sac is not stenotic. C7-T1: The thecal sac and neural foramina are intact. IMPRESSION: Very minimal degenerative changes in the cervical spine with small disc protrusions and very minimal osteophytes causing minimal narrowing of the neural foramina at several levels. There is an annular fissure at C4-5. No stenosis of the thecal sac in the cervical region. Interpreted by: Kiera Galvan MD Signed by: Kiera Galvan MD 02/26/24 Final result ALLERGIES DATE TYPE / CODE NAME / CODE REACTION SEVERITY SOURCE Drug Class/[id number](SNO MED CT) NO KNOWN ALLERGIES [facility] ENCOUNTERS ADMIT/DISCHARGE ACCOUNT NUMBER ADMITTING ENCOUNTER CLASS LOCATION SOURCE 02/25/2024/02/27/20 [id number] Ambulatory Building:[facility] 02/04/2024/02/04/20 [id number] [facility]cludes [facility] 01/18/2024/01/19/20 24 [id number] Emergency Building:[facility] _ERRoom: ED 03Bed: 03 [facility] PAYERS ENCOUNTER GUARANTOR PAYER SUBSCRIBER SOURCE 02/25/2024 CRUZ Chapo SLANEDOB: [address] [place] [place], [place] [address]Pdi: () Primary Insurance:[facility] [employer] [facility] [place]Policy Number: [id number] Date:2023-09-15 CRUZ Chapo SLANEDOB: [id number] [place], [place] [address]Pvy: (HP) [facility] 02/04/2024 Cruz Cowan [id number], [place] [address]Qah: (HP) Primary Insurance:[facility] MedicaidPolicy Number: [id number] Date: [facility], [place] [address]PR: Cruz Chapo SlaneDOB: [id number], [place] [address]Hgb: (HP) [facility] 02/04/2024 Secondary Insurance:Self PayPolicy Number: Effective Date:2024-01-21 [facility] 01/18/2024 CRUZ Chapo SLANEDOB: [place] [address]Svo: (HP) Primary Insurance:[facility] [employer] [facility] Systems[facility] MEDICAIDPolicy Number: [id number] Date:2023-09-15 CRUZ Cowan SLANEDOB: [id number] [place], [place] [address]Vcq: (HP) [facility]
--- NOTE | 2024-10-21 14:20 | ED.GENADUL1 ---
HPI HPI - General Adult General Chief complaint: Wound/Laceration Stated complaint: LACERATION L HAND Time Seen by Provider: 10/21/24 14:17 History of Present Illness HPI narrative: The 38-year-old male who presents to the emergency department today for evaluation concerns for lacerations to his fingers of his left hand after using a cutting torch. He states there was a pop over the cutting torch and he noticed following this he had some cuts to the back of his fingers on the 3rd and 4th digits. He denies any paresthesias, weakness, loss of movement to the affected extremities. He states his last tetanus was within the past 2 years. Related Data Previous Rx's ?Medication ?Instructions ?Recorded hydrocodone 5 mg-acetaminophen 325 1 tab PO Q6H PRN pain #7 tabs 10/21/24 mg tablet Allergies Allergy/AdvReac Type Severity Reaction Status Date / Time No Known Drug Allergies Allergy Verified 10/21/24 14:21 Opioid HPI Opioid Management Most Recent Opioid Data: Last Pain Scale 7 Today, 14:58 Last MAR Pain Assessment Today, 14:58 Review of Systems ROS Status of ROS 10 or more systems reviewed and unremarkable except as noted in history and below [facility] Social History Smoking status: Current every day smoker Little interest or pleasure in doing things: not at all Feeling down, depressed, or hopeless: not at all Exam Narrative Exam Narrative: Constituational: Awake/ alert, no apparent distress, well hydrated HENMT: normocephalic, external ears normal, moist oral mucous membranes and oropharynx normal Eyes: EOMI and conjunctivae normal Neck: ROM intact Chest: inspection of chest normal Respiratory: Normal respiratory effort Back: nontender MSK: L hand/wrist stable, gross/fine motor movement tach to all digits of L hand, +NVI Skin: + Superficial horizontal lacerations x 2 to the active the fourth digit of the L hand at the DIP and PIP and middle phalanx of the dorsal aspect of the third digit of L hand. Skin is otherwise warm/dry/intact Neuro: no focal deficits Psych: mental status grossly normal Constitutional Vital Signs, click to edit/add: Last Vital Signs Temp 97.9 F 10/21/24 14:23 Pulse 96 H 10/21/24 14:23 Resp 14 10/21/24 14:23 BP 128/96 H 10/21/24 14:23 Pulse Ox 94 L 10/21/24 14:23 O2 Del Method Room Air 10/21/24 14:23 Course Vital Signs Vital signs: Vital Signs Temperature 97.9 F 10/21/24 14:23 Pulse Rate 96 H 10/21/24 14:23 Respiratory Rate 14 10/21/24 14:23 Blood Pressure 128/96 H 10/21/24 14:23 Pulse Oximetry 94 L 10/21/24 14:23 Oxygen Delivery Method Room Air 10/21/24 14:23 Temperature 97.9 F 10/21/24 14:23 Pulse Rate 96 H 10/21/24 14:23 Respiratory Rate 14 10/21/24 14:23 Blood Pressure 128/96 H 10/21/24 14:23 Pulse Oximetry 94 L 10/21/24 14:23 Oxygen Delivery Method Room Air 10/21/24 14:23 Medical Decision Making MDM Narrative Medical decision making narrative: Patient is a well-appearing 38-year-old male who presented to the emergency department today for evaluation concerns for lacerations to the 3rd and 4th digits 2/2 using a cutting torch while working on his car. Initial examination without any concerning neurovascular or motor findings on exam. Patient has noted to have lacerations to the dorsal aspect of the 3rd and 4th digits at the DIP and PIP of the fourth digit and middle phalanx of the third digit. No laceration repair performed in the ER as these are overall superficial. wound care provided. Wounds are overall superficial and bacitracin with dry dressing applied to the wounds. Due to concerns for pain and foreign body x-ray imaging obtained of the affected fingers that does show fractures to middle phalanx of the third digit and concern for possible avulsion fracture to distal phalanx of the fourth digit per ER interpretation. There is concern for punctate foreign bodies at the sites of these wounds. No obvious foreign bodies appreciated on exam of these wounds and with copious irrigation and cleaning of the wounds prior to applying dressings. Discussed these findings with the patient including recommendations for supportive care. Aluminum finger splints applied for stabilization of fractures. Will discharge home with Kamiah for severe pain. Advised on follow-up with orthopedics for reevaluation and referral additionally provided at discharge. Discussed signs and symptoms of any worsening condition and when to consider reevaluation by the emergency department. Patient verbalized an understanding of this and is agreeable with the plan to be discharged home. Medical Records Medical records reviewed: Yes I reviewed the patient's medical records Imaging Data XR L hand: Attestation: I personally reviewed and interpreted this imaging study as follows: My impression: Fracture middle phalanx of third digit, possible avulsion fracture of distal phalanx fourth digit, punctate radiopaque foreign bodies to 3rd and 4th digits Discharge Plan Discharge Chief Complaint: Wound/Laceration Clinical Impression: Laceration of finger, Finger fracture, left Patient Disposition: Home, Self-Care Prescriptions / Home Meds: New hydrocodone-acetaminophen 5-325 mg tablet 1 tab PO Q6H PRN (Reason: pain) Qty: 7 0RF Print Language: Romanian Instructions: Finger Laceration (ED) Additional Instructions: Recommend triple antibiotic or Vaseline over the wounds and covering with a bandage for the next 48 hours. Wash your hands and remove any debris or germs after working. Monitor for any signs and symptoms of infection as discussed. May take Tylenol and ibuprofen as needed for any pain. May take Kamiah as needed for severe pain. Rest, ice any sore areas. Wear splints as provided by the ER for your finger fracture. Avoid lifting with the affected fingers. follow-up with orthopedics for reevaluation as discussed.. May return to the ER at anytime and with any concerns. Referrals: Physician,Non-Staff, [Primary Care Provider] - 1 week Carlos Manuel Lora MD [Physician, Orthopedics] - 1 week
--- OUTSIDE RECORDS SUMMARY | 2024-10-21 14:20 | XMS_ITS | Clinical Summary ---
Author Organization [facility] tem Address [id number] [place] [address] Care Team Providers Care Soap Mixer Name Role Phone No Pcp, No Pcp Primary Care Provider Unavailabl e Allergies No known active allergies Medications ketorolac (TORADOL) 10 mg tablet Take 1 tablet (10 mg total) by mouth every 6 (six) hours as needed for pain. 20 tablet 4 Active alum-mag hydroxide-simet h (MAALOX) 200-200-20 mg/5 mL suspension Take 30 mL by mouth in the morning and 30 mL at noon and 30 mL in the evening. Take with meals. 769 mL 4 Active lidocaine (LIDODERM) 5 % Place 1 patch on the skin daily. Remove & Discard patch within 12 hours or as directed by 30 patch 4 Active methylPREDNISol one (MEDROL, KARUNA,) 4 mg tablet follow package directions 21 tablet 4 Active Immunizations Immunization Administration Dates Next Due DTaP 06/30/1991,06/24/1990,04/22/1990 ,02/04/1990 HiB 04/22/1990 IPV 06/30/1991,04/22/1990,02/04/1990 MMR 12/08/1998,02/04/1990 Social History Tobacco Use Types Packs/Day Years Used Date Smoking Tobacco: Every Day Cigarettes Smokeless Tobacco: Never Alcohol Use Standard Drinks/Week Comments Not Currently 0 (1 standard drink = 0.6 oz pur e alcohol) Childcare Answer Date Recorded Childcare Unknown 09/25/2018 Employment Answer Date Recorded Employment Unknown 09/25/2018 Hunger Screening Answer Date Recorded Within the past 12 months we worried whether our food would run out before we got money to buy more. Never True 01/18/2024 Within the past 12 months th e food we bought just didn't last and we didn't have money to get more. Never True 01/18/2024 Purpose - Life Answer Date Recorded Purpose and direction in life Unknown Sex and Gender Information Value Date Recorded Sex Assigned at Not on file Legal Sex Male 11:34 AM EDT Gender Identity Not on file Sexual Orientation Not on file Last Filed Vital Signs Vital Sign Reading Time Taken Comments Blood Pressure 158/114 01/18/2024 11:20 PM EDT Pulse 72 01/18/2024 11:20 PM EDT Temperature 36.6 C (97.8 F) 01/18/2024 9:36 PM EDT Respiratory Rate 20 01/18/2024 11:20 PM EDT Oxygen Saturation 94% 01/18/2024 11:20 PM EDT Inhaled Oxygen Concentration - - Weight 99.8 kg (220 lb) 01/18/2024 9:36 PM EDT Height 170.2 cm (5' 7 ) 01/18/2024 9:36 PM EDT Body Mass Index 34.46 01/18/2024 9:36 PM EDT Plan of Treatment Health Maintenance Due Date Last Done Comments Tobacco Counseling 1985 DTaP,Tdap and Td Vaccines (5 - Tdap) 1996 06/30/1991, 06/24/1990, 04/22/1990, Additional history exists Depression Screening 1997 Adult BMI Follow Up Plan 12/05/2003 Influenza Vaccine 12/15/2024 Adult BMI Screening 01/17/2025 01/18/2024 Tobacco Screening 01/17/2025 01/18/2024 Medical Devices Not on file Insurance [employer] Care Teams Soap Mixer Relationship Specialty Start Date End Date No Pcp, [place] [address] PCP - General Family Medicine 11/15/17
--- OUTSIDE RECORDS SUMMARY | 2024-10-21 14:20 | XMS_ITS | Encounter Summary ---
Author Organization [facility] Address [address] [place] [address] Care Team Providers Care Stone Cleaner Name Role Phone Unavailable Primary Care Provider Unavailabl e Reason for Referral * Imaging (Routine) - Closed Specialty Diagnoses / Procedures Referred By Eliezer lane Referred To Contact Radiology Diagnoses Cervical radiculopathy Procedures MRI CERVICAL SPINE WO CONTRAST Crescencio Askew MD [address] [place] [address] Phone: tel: fax: Referral ID Status Reason Start Date Expiration Date Visits Re quested Visits Authorized [id number] Closed 02/07/2024 04/07/2024 1 1 Encounter Details Date Type Department Care Team (Latest Contact Info) Description 02/12/2024 Transcribe Orders [facility] [address] [place] [id number] Crescencio Askew MD [address] [place] [address] Cervical radiculopathy (Primary Dx) Social History Tobacco Use Types Packs/Day Years Used Date Smoking Tobacco: Never Assessed Sex and Gender Information Value Date Recorded Sex Assigned at Not on file Legal Sex Male 1:49 AM EDT Gender Identity Not on file Sexual Orientation Not on file documented as of this encounter Plan of Treatment Not on file documented as of this encounter Results * MRI CERVICAL SPINE WO CONTRAST (02/25/2024 3:11 PM EST) Anatomical Region Laterality Modality C-spine, T-spine, Neck Magnetic Resonance 02/26/2024 3:03 PM EST Impressions 02/26/2024 10:46 PM EST Very minimal degenerative changes in the cervical spine with small disc protrusions and very minimal osteophytes causing minimal narrowing of the neural foramina at several levels. There is an annular fissure at C4-5. No stenosis of the thecal sac in the cervical region. Narrative 02/26/2024 10:46 PM EST EXAMINATION: MRI OF THE CERVICAL SPINE WITHOUT [...] thecal sac and neural foramina are intact. Procedure Note Kiera Galvan MD - 02/26/2024 EXAMINATION: MRI OF THE CERVICAL SPINE WITHOUT CONTRAST 02/25/2024 3:11 pm TECHNIQUE: Multiplanar multisequence MRI of the cervical spine was performed withoutthe administration of intravenous contrast. COMPARISON: None. HISTORY: ORDERING SYSTEM PROVIDED HISTORY: Cervical radiculopathy Initial evaluation FINDINGS: BONES/ALIGNMENT: There is normal alignment of the spine. The vertebralbody heights are maintained. The bone marrow signal appears unremarkable.There is mild disc space narrowing and small osteophytes at C3-4, C4-5, C5-6,and C6-7. There is an annular fissure at C4-5. Motion artifact degrades someof the images. SPINAL CORD: No abnormal cord signal is seen. SOFT TISSUES: No paraspinal mass identified. C2-C3: The thecal sac and neural foramina are intact. C3-C4: There are small osteophytes. Disc and/or osteophytes causeminimal narrowing of the neural foramina bilaterally. The thecal sac is notstenotic. C4-C5: There is a disc protrusion with annular fissure measuring 2-3 mm. Disc and/or osteophytes cause minimal narrowing of the neural foramina bilaterally. The thecal sac is not stenotic. C5-C6: There is a minimum disc protrusion measuring 2 mm. Disc and/or osteophytes cause minimal narrowing of the neural foramina bilaterally.The thecal sac is not stenotic. C6-C7: Disc and/or osteophytes cause minimal narrowing of the neuralforamina bilaterally. The thecal sac is not stenotic. C7-T1: The thecal sac and neural foramina are intact. IMPRESSION: Very minimal degenerative changes in the cervical spine with small disc protrusions and very minimal osteophytes causing minimal narrowing ofthe neural foramina at several levels. There is an annular fissure at C4-5.No stenosis of the thecal sac in the cervical region. us Crescencio Askew MD IMG MRI ORDERABLES Final Re sult documented in this encounter Visit Diagnoses Diagnosis Cervical radiculopathy- Primary Brachial neuritis or radiculitis nos Cervical radiculopathy Brachial neuritis or radiculitis nos documented in this encounter
--- OUTSIDE RECORDS SUMMARY | 2024-10-21 14:20 | XMS_ITS | Clinical Summary ---
Author Organization [facility] Address [address] [place] [address] Care Team Providers Care Try Out Person Name Role Phone Unavailable Primary Care Provider Unavailabl e Social History Tobacco Use Types Packs/Day Years Used Date Smoking Tobacco: Never Assessed Sex and Gender Information Value Date Recorded Sex Assigned at Not on file Legal Sex Male 1:49 AM EDT Gender Identity Not on file Sexual Orientation Not on file Plan of Treatment Health Maintenance Due Date Last Done Comments DTaP/Tdap/Td vaccine (5 - Tdap) 1996 06/30/1991, 06/24/1990, 04/22/1990, Additional history exists Depression Screen 1997 Varicella vaccine (1 of 2 - 13+ 2-dose series) 1998 HIV screen 2000 Hepatitis C screen 12/05/2003 Hepatitis B vaccine (1 of 3 - 19+ 3-dose series) 2004 COVID-19 Vaccine ( season) 2023 Flu vaccine (#1) 11/14/2024 Hib vaccine Completed 04/22/1990 Polio vaccine Completed 06/30/1991, 10/1990, 02/04/1990 HPV vaccine Aged Out No longer eligi ble based on patient's age to complete this topic Hepatitis A vaccine Aged Out No longe r eligible based on patient's age to complete this topic Meningococcal (ACWY) vaccine Aged Out No longer eligible based on patient's age to complete this topic Meningococcal B vaccine Aged Out No l onger eligible based on patient's age to complete this topic Pneumococcal 0-49 years Vaccine Aged Out No longer eligible based on patient's age to complete this topic Insurance [facility]
--- OUTSIDE RECORDS SUMMARY | 2024-10-21 14:20 | XMS_ITS | Clinical Summary ---
Author Organization [facility] Address [address] [place] [address] Care Team Providers Care Collection Systems Modeler Name Role Phone Unavailable Primary Care Provider Unavailabl e Social History Tobacco Use Types Packs/Day Years Used Date Smoking Tobacco: Never Assessed Sex and Gender Information Value Date Recorded Sex Assigned at Not on file Legal Sex Male 9:23 AM EDT Gender Identity Not on file Sexual Orientation Not on file Plan of Treatment Not on file Insurance [facility]
[2024-10-21 14:23] VITALS: BP 128/96; PULSE 96; TEMP 36.6; O2SAT 94; BMI 32.9
--- NOTE | 2024-10-21 14:41 | XR_ITS ---
[facility] [place] [id number] Patient Name: TRISH ALTMAN MRN: [id number] date: 1985 Sex: M Assigned Patient Location: ER Current Patient Location: ER Accession/Order Number: [id number] Exam Date: 10/21/2024 15:25 Report Date: 10/21/2024 15:28 At the request of: JOSE LUIS RODNEY NP Procedure: XR hand LT min 3V XR hand LT min 3V 10/21/2024 2:54 PM SIGNS AND SYMPTOMS: ^3rd/ 4th digits, pain and lacerations ^Y PROTOCOL: Frontal, lateral, and oblique radiographs of the left hand COMPARISON: 07/01/2020 FINDINGS: There is an obliquely oriented fracture involving the shaft of the third middle phalanx. There is a minimally displaced fracture along the dorsal plate at the base of the fourth distal phalanx. There is soft tissue swelling of the third and fourth digits. Tiny radiopaque foreign bodies are noted along the dorsum of the middle phalanx of the third digit. There is mild narrowing of the third metacarpophalangeal joint. XR/XR hand LT min 3V IMPRESSION: There is an obliquely oriented fracture involving the shaft of the third middle phalanx. There is a minimally displaced fracture along the dorsal plate at the base of the fourth distal phalanx. There is soft tissue swelling of the third and fourth digits. Tiny radiopaque foreign bodies are noted along the dorsum of the middle phalanx of the third digit. Impression dictated by: Aurelio Azar M.D. 10/21/2024 3:28 PM Dictation Location: [place] [address] Electronically authenticated by: [id number] Y Date: 10/21/2024 15:28
[2024-10-21] MEDS: ACETAMINOPHEN 500 MG TABLET 1000 MG PO (14:58)
== END 2024-10-21 15:37 | disposition home or self-care (01) ==
PROVIDERS: Emergency Provider Emergency Medicine
DX: S62.603A Fracture of unspecified phalanx of left middle finger, initial encounter for closed fracture (principal); S62.605A Fracture of unspecified phalanx of left ring finger, initial encounter for closed fracture; S61.213A Laceration without foreign body of left middle finger without damage to nail, initial encounter; F17.200 Nicotine dependence, unspecified, uncomplicated; S61.215A Laceration without foreign body of left ring finger without damage to nail, initial encounter; W29.8XXA Contact with other powered hand tools and household machinery, initial encounter
CPT/HCPCS: 29130; 73130; 99283